=== PATIENT | male | born 1970 | race Hispanic/Latino ===

== ENCOUNTER → 2019-04-21 | Outpatient (CLI) | payer OTHER ==
--- NOTE | 2019-04-21 13:58 | Diagnostic Imaging Report ---
EXAMINATION: CHEST 2 VIEWS INDICATION: Shortness of breath COMPARISON: None FINDINGS: LINES/TUBES:None LUNGS:The lungs are well-inflated. No focal consolidation or pulmonary edema. PLEURA:No pleural effusion or pneumothorax. MEDIASTINUM:The cardiomediastinal silhouette appears normal in size and shape. BONES/SOFT TISSUES:No acute osseous injury. Mild degenerative changes of the visualized spine. ABDOMEN:No free air under the diaphragm. IMPRESSION: No focal pneumonia or pulmonary edema. Signed by: Morgan Felton MD on 04/21/2019 1:55 PM
--- NOTE | 2019-06-06 07:53 | Polysomnography ---
DATE OF STUDY: REFERRING PHYSICIAN: Patient of Dr. Sanchez. Study was performed as an outpatient, home study. Central and occipital EEG leads were monitored as well as left and right electrooculogram. Submentalis EMG, anterior EKG, nasal and oral thermistors, respiratory effort, strain gauge monitor, pulse oximetry and anterior tibialis EMG. The study was abnormal. Sleep staging could not be performed with this technology. However, there were full frequent episodes of sleep apnea with apnea-hypopnea index of 17.6, 27 obstructive events and 64 hypopneas. O2 saturation fell as low as 85%. IMPRESSION: Moderately severe obstructive sleep apnea. Therapeutic options would include uvulopalatopharyngoplasty with jaw advancement, weight loss, and nasal CPAP. Certainly weight loss should be part of the patient's therapeutic program. Examination of the nasal and oropharynx should be considered as well as assay of thyroid function if not performed recently. MD YULIA Rouse/MODL /[id number]
== END ==
LOC: RAD 13:06
PROVIDERS: ATTEND Internal Medicine Pulmonary Disease
DX: R06.02 Shortness of breath (principal)
CPT/HCPCS: 71046

== ENCOUNTER → 2019-05-24 | Outpatient (CLI) | payer OTHER | LOC: SLEEP 19:40 | PROVIDERS: ATTEND Internal Medicine Pulmonary Disease | DX: G47.33 Obstructive sleep apnea (adult) (pediatric) (principal) | CPT/HCPCS: 95806 ==